=== PATIENT | female | born 1980 | race Caucasian/White ===

== ENCOUNTER 2023-01-16 16:27 | Outpatient (REF) | payer OTHER, SELFPAY ==
[2023-01-16 16:48] LABS: MANUAL DIFF FLAG NO
[2023-01-16 17:59] LABS: Basophils Absolute Auto 0.1 X10*3/uL (0.0-0.2); Basophils Percent Auto 0.7 % (0-2); Eosinophils Absolute Auto 0.1 X10*3/uL (0.0-0.4); Eosinophils Percent Auto 1.8 % (0-4); Hematocrit 41.3 % (37.0-47.0); Hemoglobin 14.2 g/dl (12.0-16.0); Imm Gran Abs Auto 0.01 X10*3/uL (0.00-0.03); Imm Gran Pct Auto 0.1 % (0.0-0.4); Lymphocytes Absolute Auto 2.9 X10*3/uL (1.2-4.9); Lymphocytes Percent Auto 39.6 % (20-40); Mean Corpuscular HGB Conc 34.4 g/dl (31.0-35.0); Mean Corpuscular Hemoglobin 33.2 pg (27.0-33.0); Mean Corpuscular Volume 96.5 fL (80.0-98.0); Mean Platelet Volume 11.6 fL (9.4-12.3); Monocytes Absolute Auto 0.6 X10*3/uL (0.1-1.2); Monocytes Percent Auto 8.3 % (2-11); Neutrophils Absolute Auto 3.6 x10*3/uL (2.0-8.3); Neutrophils Percent Auto 49.5 % (45-73); Platelet Count 248 X10*3/uL (160-400); Red Blood Count 4.28 X10*6/uL (4.20-5.50); Red Cell Distribution Width 11.9 % (11.0-16.0); White Blood Count 7.2 X10*3/uL (4.8-10.8)
[2023-01-16 18:27] LABS: Anion Gap 11 (12-20); Blood Urea Nitrogen 23 mg/dL (9-16); Calcium 9.4 mg/dL (8.4-10.2); Carbon Dioxide 28 mmol/L (22-29); Chloride 103 mmol/L (96-108); Estimated Glomerular Filt Rate > 60; Glucose Random 89 mg/dL (60-115); Potassium 3.9 mmol/L (3.3-5.1); Sodium 138 mmol/L (135-145)
== END 2023-01-16 16:28 | disposition home or self-care (01) ==
LOC: HO.LAB 16:27
PROVIDERS: PCP Internal Medicine; Visit Provider Plastic Surgery
DX: Z01.818 Encounter for other preprocedural examination (principal)
CPT/HCPCS: 36415; 80048; 85025

== ENCOUNTER → 2023-01-18 15:40 | Outpatient (REF) | payer OTHER, SELFPAY ==
--- NOTE | 2023-01-18 | ECG_ITS ---
Test Reason : preop Blood Pressure : / mmHG Vent. Rate : 058 BPM Atrial Rate : 058 BPM P-R Int : 140 ms QRS Dur : 092 ms QT Int : 428 ms P-R-T Axes : 060 033 027 degrees QTc Int : 420 ms Sinus bradycardia Otherwise normal ECG No previous ECGs available Referred By: Ben Dupree Electronically Signed By:PEARL ESQUEDA
== END ==
LOC: HO.CARD 15:40
PROVIDERS: PCP Internal Medicine; Visit Provider Plastic Surgery
DX: Z01.818 Encounter for other preprocedural examination (principal)
CPT/HCPCS: 93005

== ENCOUNTER 2025-01-08 16:22 | Outpatient (REF) | payer OTHER, SELFPAY ==
--- OUTSIDE RECORDS SUMMARY | 2025-01-08 16:30 | XMS_ITS | Clinical Summary ---
Author Organization [facility] Address [address] [place] [address] [place], [place] [id number] Phone Care Team Providers Care Commissioner Public Works Name Role Phone Osmin Cowan DO Primary Care Provider [phone] Allergies Active Allergy Reactions Criticality Noted Date Comments Ketotifen Fumarate Erythema Low 07/21/2022 Medications multivitamin with minerals tablet Orally Acti ve omega 0-mts-mbm-fish oil 1,000 mg (120 mg-180 mg) Cap Take 1 capsule by mouth daily. Active vit D3/vit K2/calc frutoborate (VIT D3-VIT K2-CA FRUCTOBORATE ORAL) Take by mouth. Active glucosam/chond/co llagen/hyalur (JOINT SUPPORT ORAL) Take by mouth. Active Family History Medical History Relation Comments No Known Problems Father COPD Mother Relation Status Comments Father Alive Mother Alive Social History Tobacco Use Types Packs/Day Years Used Date Smoking Tobacco: Never Smokeless Tobacco: Never Alcohol Use Standard Drinks/Week Comments Yes 0 (1 standard drink = 0.6 oz pur e alcohol) Education Answer Date Recorded Are you interested in more education? Not on marquis e 09/08/2022 Are you concerned about learning? Not on file 09/08/2022 No 09/08/2022 No 09/08/2022 Digital Access Answer Date Recorded No 10/09/2022 No 10/09/2022 Reliable internet access at home? Not on file 10/09/2022 Device with a working camera? Not on file Comments No Sex and Gender Information Value Date Recorded Sex Assigned at Not on file Legal Sex Female 9:24 PM EDT Gender Identity Not on file Sexual Orientation Not on file Last Filed Vital Signs Vital Sign Reading Time Taken Comments Blood Pressure 100/62 07/21/2022 8:10 AM EST Pulse - - Temperature - - Respiratory Rate - - Oxygen Saturation - - Inhaled Oxygen Concentration - - Weight 66.7 kg (147 lb) 07/21/2022 8:10 AM EST Height 157.5 cm (5' 2 ) 06/07/2018 4:23 PM EST Body Mass Index 26.89 06/07/2018 4:23 PM EST Plan of Treatment Health Maintenance Due Date Last Done Comments Adult Td,Tdap Booster 1980 LIPID PANEL 1978 DEPRESSION SCREENING 1990 HEPATITIS C SCREENING 1996 HIV ONE-TIME SCREENING (18-6 5 YEARS) 1996 MAMMOGRAM 2018 PAP SMEAR 06/07/2021 06/07/2018, 06/07/2018 SCREENING FOR DIABETES 04/07/2022 04/07/2019 COLOGUARD 09/10/2023 COLONOSCOPY 09/10/2023 COLORECTAL CANCER SCREENING 09/10/2023 FIT TEST 09/10/2023 FOBT 09/10/2023 SIGMOIDOSCOPY 09/10/2023 VIRTUAL COLONOSCOPY 09/10/2023 COVID-19 VACCINE ( - 2023-2 5 season) 2024 INFLUENZA VACCINE (#1) 2024 SMOKING STATUS SCREENING (On ce After 26 Yrs) Completed 07/21/2022 HEPATITIS A VACCINES Aged Out No long er eligible based on patient's age to complete this topic HIB VACCINES Aged Out No longer eligi ble based on patient's age to complete this topic MENINGOCOCCAL VACCINES (ACWY) Aged Out No longer eligible based on patient's age to complete this topic MENINGOCOCCAL VACCINES (B) Aged Out N o longer eligible based on patient's age to complete this topic PNEUMOCOCCAL VACCINES (0-49 years) Aged Out No longer eligible b ased on patient's age to complete this topic Medical Devices Not on file Procedures Procedure Name Priority Date/Time Associated Diagnosis Comments PAP TEST Routine 06/07/2018 12:00 AM EST from Last 3 Months or Most Recently Relevant to Health Maintenance Results * Pap Smear (06/07/2018 12:00 AM EST) 06/07/2018 06/10/2018 12: 05 PM EST Narrative SEE NARRATIVE - 06/13/2018 2:58 PM EST [address] [address] Managing Broker: Aurea Mena MD [facility] Cytology Report FINAL DIAGNOSIS A. PAP SMEAR (SUREPATH) CE: SPECIMEN ADEQUACY: Satisfactory for evaluation; transformation zone absent/insufficient. INTERPRETATION: NEGATIVE FOR INTRAEPITHELIAL LESION OR MALIGNANCY. Electronically Signed Out By: ANGELY Mann(ASCP) The Pap test is a screening test primarily for squamous cancers and precursors and has associated false-negative and false-positive results. New technologies such as liquid-based preparations may decrease but will not eliminate all false-negative results. Regular sampling and follow-up of unexplained clinical signs and symptoms are recommended to minimize false negative results. PROCEDURES/ADDENDA HPV Testing (Requested) Ordered Date: 06/10/2018 HPV Test Negative for high-risk human papillomavirus types 16, 18, 45 and the Other high risk probe set (Includes 31, 33, 35, 39, 51, 52, 56, 58, 59, 66, 68) by [employer] HR-HPV analysis. Clinical correlation is advised. This HPV test was performed at [facility], [address] [place] [address]. This test has been FDA approved for [facility] cervical cytology specimens. The accuracy and precision of this test for all other specimen sources has been verified in the Cytopathology Laboratory of the [facility] and has not been cleared or approved by the U.S. Food and Drug Administration. Clinical correlation is advised. CLINICAL HISTORY Date of Last Menstrual Period: N/A Contraceptive History: IUD Other Clinical Conditions: Screening Pap SPECIMEN SOURCE A: PAP SMEAR (SUREPATH) CE Patient Name: PRAVEENA YANCEY : 1980 (Age: 37) Sex: F [facility] Date of Collection: 06/07/2018 Date of Reported: 06/13/2018 14:58 Results to: Shea Sanchez MD Shea Sanchez MD CYTOLOGY ORDERABLES Final Result SEE NARRATIVE from Last 3 Months or Most Recently Relevant to Health Maintenance Insurance [facility] Address: [address] [address] [facility] Address: [address] [address] Care Teams Commissioner Public Works Relationship Specialty Start Date End Date Osmin Cowan DO PCP - General Internal Medicine 08/06/18 Additional Source Comments The information contained in this document represents components of the legal health record. It is not the complete legal health record.[facility]
--- OUTSIDE RECORDS SUMMARY | 2025-01-08 16:30 | XMS_ITS | Encounter Summary ---
Author Organization [facility] Address [address] [facility] [address] [place] [address] Phone Care Team Providers Care History Teacher Name Role Phone GwensamuelOsmin DO Primary Care Provider [phone] Encounter Details Date Type Department Care Team (Late st Contact Info) Description 03/09/2022 Transcribe Orders Virtual Department [address] [place] [address] Osmin Cowan DO [address] [facility] [address] [email or web address] Low back pain, unspecified back pain laterality, unspecified chronicity, unspecified whether sciatica present (Primary Dx) Social History Tobacco Use Types Packs/Day Years Used Date Smoking Tobacco: Never Smokeless Tobacco: Never Alcohol Use Standard Drinks/Week Comments Yes 0 (1 standard drink = 0.6 oz pur e alcohol) Comments No Sex and Gender Information Value Date Recorded Sex Assigned at Not on file Legal Sex Female 9:24 PM EDT Gender Identity Not on file Sexual Orientation Not on file documented as of this encounter Plan of Treatment Not on file documented as of this encounter Results * XR LUMBOSACRAL SPINE 4 OR MORE VIEWS (03/13/2022 2:29 PM EDT) Anatomical Region Laterality Modality L-spine Computed Radiogr aphy 03/13/2022 5:50 PM EDT Impressions 03/13/2022 5:50 PM EDT No acute osseous abnormality. Narrative 03/13/2022 5:50 PM EDT XR LUMBOSACRAL SPINE 4 OR MORE VIEWS COMPARISON: XR LUMBOSACRAL SPINE 4 OR MORE VIEWS FINDINGS: Minimal right convex lumbar spinal curvature. Normal vertebral body heights. Normal intervertebral disc spaces. Intact sacroiliac joints. Procedure Note Seema Mendez MD - 03/13/2022 XR LUMBOSACRAL SPINE 4 OR MORE VIEWS COMPARISON: XR LUMBOSACRAL SPINE 4 OR MORE VIEWS FINDINGS: Minimal right convex lumbar spinal curvature. Normal vertebral bodyheights. Normal intervertebral disc spaces. Intact sacroiliac joints. IMPRESSION: No acute osseous abnormality. us Osmin Cowan DO IMG XR SPINE Final Result documented in this encounter Visit Diagnoses Diagnosis Low back pain, unspecified back pain laterality, unspecified chronicity, unspecified whether sciatica present- Primary Low back pain, unspecified back pain laterality, unspecified chronicity, unspecified whether sciatica present documented in this encounter Care Teams History Teacher Relationship Specialty Start Date End Date Osmin Cowan DO [email or web address] PCP - General Internal Medicine 08/06/18 documented as of this encounter Additional Source Comments The information contained in this document represents components of the legal health record. It is not the complete legal health record.[facility]
--- OUTSIDE RECORDS SUMMARY | 2025-01-08 16:30 | XMS_ITS | Encounter Summary ---
Author Organization [facility] Address [address] [address] Phone Care Team Providers Care Synoptic Meteorologist Name Role Phone Gwensamuel Osmin Wilkes DO Primary Care Provider [phone] Encounter Details Date Type Department Care Team (Late st Contact Info) Description 03/28/2019 Transcribe Orders Virtual Department 30 [place] [address] Osmin Cowan DO [address] [facility] [place] [address] [email or web address] Pain in joint of left hip (Primary Dx) Social History Tobacco Use Types [...] on file documented as of this encounter Visit Diagnoses Diagnosis Pain in joint of left hip- Primary documented in this encounter Care Teams Synoptic Meteorologist Relationship Specialty Start Date End Date Osmin Cowan DO [email or web address] PCP - General Internal Medicine 08/06/18 documented as of this encounter Additional Source Comments The information contained in this document represents components of the legal health record. It is not the complete legal health record.[facility]
--- OUTSIDE RECORDS SUMMARY | 2025-01-08 16:30 | XMS_ITS | Encounter Summary ---
Author Organization [facility] Address [address] [facility] [address] [place] [phone] Phone Care Team Providers Care Manager Title Name Role Phone GwensamuelOsmin DO Primary Care Provider [phone] Encounter Details Date Type Department Care Team (Late st Contact Info) Description 04/07/2019 Ancillary Orders Virtual Department 30 [place] [address] Osmin Cowan DO [address] [place] [address] [email or web address] Pain in joint of left hip Social History Tobacco Use Types Packs/Day Years [...] as of this encounter Results * XR HIPS 1 VW EA BILAT PLUS PELVIS (04/07/2019 5:50 PM EST) Anatomical Region Laterality Modality Hip, Pelvis Radiographic Corina ging 04/07/2019 8:12 PM EST Impressions 04/07/2019 8:13 PM EST No acute bone abnormality. POS - [facility] Narrative 04/07/2019 8:13 PM EST HISTORY: <N/A> no indication applies (use free text below) TECHNIQUE: Two views of the left hip obtained. An AP view of the pelvis is added. COMPARISON: None. FINDINGS: There is no acute fracture, subluxation or dislocation. The hip joint spaces are preserved. The sacroiliac joints are unremarkable. Procedure Note Samuel Irene MD - 04/07/2019 HISTORY: <N/A> no indication applies (use free text below) TECHNIQUE: Two views of the left hip obtained. An AP view of the pelvis isadded. COMPARISON: None. FINDINGS: There is no acute fracture, subluxation or dislocation. The hip joint spaces are preserved. The sacroiliac joints areunremarkable. IMPRESSION: No acute bone abnormality. POS - [facility] Osmin Cowan DO IMG XR PELVIS Final Result documented in this encounter Visit Diagnoses Diagnosis Pain in joint of left hip Pain in joint of left hip documented in this encounter Care Teams Manager Title Relationship Specialty Start Date End Date Osmin Cowan DO [email or web address] PCP - General Internal Medicine 08/06/18 documented as of this encounter Additional Source Comments The information contained in this document represents components of the legal health record. It is not the complete legal health record.[facility]
--- OUTSIDE RECORDS SUMMARY | 2025-01-08 16:30 | XMS_ITS | Encounter Summary ---
Author Organization [facility] Address [address] [address] Phone Care Team Providers Care Accounts Payable Bookkeeper Name Role Phone Gwensamuel Osmin Wilkes DO Primary Care Provider [phone] Encounter Details Date Type Department Care Team (Late st Contact Info) Description 04/07/2019 Ancillary Orders Virtual Department 30 [place] [address] Osmin Cowan DO [address] [place] [address] [email or web address] Pain in joint of left hip; Low back pain, unspecified back pain laterality, unspecified chronicity, unspecified whether sciatica present Social History Tobacco Use Types Packs/Day Years [...] XR LUMBOSACRAL SPINE 4 OR MORE VIEWS (04/07/2019 5:50 PM EST) Anatomical Region Laterality Modality L-spine Radiographic Corina ging 04/07/2019 8:13 PM EST Impressions 04/07/2019 8:13 PM EST 1. No acute bone abnormality. 2. No significant degenerative change. POS - [facility] Narrative 04/07/2019 8:13 PM EST CLINICAL HISTORY: <N/A> no indication applies (use free text below) TECHNIQUE: AP, lateral and lateral spot views of the lumbar spine obtained. Oblique views are added. COMPARISON: None. FINDINGS: There is a mild right convex curvature of the lumbar spine. There is no significant degenerative change. There is no fracture. The prevertebral soft tissues are unremarkable. Procedure Note Samuel Irene MD - 04/07/2019 CLINICAL HISTORY: <N/A> no indication applies (use free text below) TECHNIQUE: AP, lateral and lateral spot views of the lumbar spineobtained. Oblique views are added. COMPARISON: None. FINDINGS: There is a mild right convex curvature of the lumbar spine. There is no significant degenerative change. There is no fracture. The prevertebral soft tissues are unremarkable. IMPRESSION: 1. No acute bone abnormality. 2. No significant degenerative change. POS - [facility] Osmin Cowan DO IMG XR SPINE Final Result documented in this encounter Visit Diagnoses Diagnosis Pain in joint of left hip Low back pain, unspecified back pain laterality, unspecified chronicity, unspecified whether sciatica present Pain in joint of left hip Low back pain, unspecified back pain laterality, unspecified chronicity, unspecified whether sciatica present documented in this encounter Care Teams Accounts Payable Bookkeeper Relationship Specialty Start Date End Date Osmin Cowan DO [email or web address] PCP - General Internal Medicine 08/06/18 documented as of this encounter Additional Source Comments The information contained in this document represents components of the legal health record. It is not the complete legal health record.[facility]
[2025-01-08 17:51] LABS: Alanine Aminotransferase 24 U/L (0-31); Albumin Level 4.4 g/dL (3.5-5.0); Alkaline Phosphatase 63 U/L (39-117); Anion Gap 12 (12-20); Aspartate Amino Transferase 27 U/L (5-31); Blood Urea Nitrogen 25 mg/dL (9-16); Calcium 9.1 mg/dL (8.4-10.2); Carbon Dioxide 27 mmol/L (22-29); Chloride 102 mmol/L (96-108); Estimated Glomerular Filt Rate > 60; Magnesium 2.2 mg/dL (1.6-2.6); Potassium 4.3 mmol/L (3.3-5.1); Sodium 137 mmol/L (135-145); Total Protein 6.9 g/dL (6.5-8.0)
[2025-01-08 18:08] LABS: Free T4 (Free Thyroxine) 1.05 ng/dL (0.71-1.85); Thyroid Stimulating Hormone 1.54 uIU/mL (0.32-4.0)
[2025-01-08 18:41] LABS: Folate 13.6 ng/mL (> or = 4.0); Vitamin B12 > 2000 pg/mL (200-900)
[2025-01-14 11:59] LABS: Anti Nuclear Antibody Screen NEGATIVE (NEGATIVE)
== END 2025-01-08 16:23 | disposition home or self-care (01) ==
LOC: HO.LAB 16:22
PROVIDERS: PCP Internal Medicine; Visit Provider Physician Assistant
DX: M79.10 Myalgia, unspecified site (principal); Z01.84 Encounter for antibody response examination
CPT/HCPCS: 36415; 80053; 82306; 82550; 82607; 82746; 83735; 84439; 84443; 85652; 86038; 86140; 86225; 86431